=== PATIENT | female | born 1995 | race African-American/Black ===

== ENCOUNTER 2022-08-12 17:11 | Emergency (ER) | payer MEDICAID ==
[~2022-08-12] VITALS: Ht 172.7 cm; Wt 65.0 kg
[2022-08-12 17:21] VITALS: BP 128/84
[2022-08-12] MEDS: IBUPROFEN 600 MG TABLET PO ONE (18:42)
[2022-08-12] MEDS: ACETAMINOPHEN 500 MG TABLET PO ONE (18:43)
[2022-08-12 19:33] LABS: COVID AG,FIA SOURCE NASOPHARYNGEAL
[2022-08-12 19:46] LABS: INFLUENZA TYPE A NEGATIVE FOR TYPE A (NEGATIVE); INFLUENZA TYPE B NEGATIVE FOR TYPE B (NEGATIVE); RAPID GROUP A STREP NEGATIVE (NEGATIVE)
== END 2022-08-12 21:44 | disposition home or self-care (01) ==
LOC: EMS 17:15
DX: J02.8 Acute pharyngitis due to other specified organisms (principal); F17.210 Nicotine dependence, cigarettes, uncomplicated; F12.90 Cannabis use, unspecified, uncomplicated; Z20.822 Contact with and (suspected) exposure to COVID-19
CPT/HCPCS: 86308; 87430; 87804; 99283